=== PATIENT | male | born 2000 | race Hispanic/Latino ===

== ENCOUNTER 2024-07-01 05:57 | Emergency (ER) | payer SELFPAY ==
[~2024-07-01] VITALS: Ht 177.8 cm; Wt 113.4 kg
[2024-07-01 06:01] VITALS: TEMP 98.7
[2024-07-01 06:32] LABS: BASOPHILS # (AUTO) 0.1 (0.0-0.1); BASOPHILS % 0.5 % (0.0-1.0); EOSINOPHILS # (AUTO) 0.2 (0.0-0.4); EOSINOPHILS % 2.3 % (0.0-6.0); HEMATOCRIT 43.6 % (38.2-49.6); LYMPHOCYTES # (AUTO) 3.3 (1.0-3.2); MEAN CORPUSCULAR HEMOGLOBIN 31.3 pg (28-32); MEAN CORPUSCULAR HGB CONC 34.4 g/dL (31-35); MONOCYTES # (AUTO) 0.6 (0.2-0.8); MONOCYTES % 6.5 % (4.4-11.3); NEUTROPHILS # (AUTO) 5.2 (2.1-6.9); NEUTROPHILS % 55.2 % (38.7-80.0); PLATELET COUNT 386 x10e3/uL (140-360); RED BLOOD COUNT 4.79 x10e6/uL (4.3-5.7); RED CELL DISTRIBUTION WIDTH 12.8 % (11.7-14.4); WHITE BLOOD COUNT 9.49 x10e3/uL (4.8-10.8)
[2024-07-01] MEDS: ONDANSETRON HCL INJ 2MG/ML 2ML 2 MG/ML VIAL IV STA (06:37)
[2024-07-01] MEDS: FAMOTIDINE 20 MG/2 ML VIAL IV STA (06:37)
[2024-07-01] MEDS: Morphine 2mg Syringe 2 MG/ML SYR IV ONE (06:38)
[2024-07-01] MEDS: SODIUM CHLORIDE 0.9% 1000ML 1,000 ML IV ONE (06:38)
[2024-07-01 06:42] LABS: BILIRUBIN,URINE NEGATIVE (NEGATIVE); CLARITY,URINE SL CLOUDY (CLEAR); COLOR,URINE YELLOW (YELLOW); GLUCOSE, URINE NEGATIVE (NEGATIVE); KETONES,URINE NEGATIVE (NEGATIVE); LEUKOCYTE ESTERASE ,URINE NEGATIVE (NEGATIVE); NITRITE,URINE NEGATIVE (NEGATIVE); PH,URINE 5.5 (5 - 7); PROTEIN,URINE DIPSTICK NEGATIVE (NEGATIVE); URINE UROBILINOGEN 0.2 mg/dL (0.2 - 1)
[2024-07-01 06:50] LABS: ALBUMIN 4.6 g/dL (3.5-5.0); ALBUMIN/GLOBULIN RATIO 1.3 (0.8-2.0); ANION GAP 13.6 mmol/L (8-16); BILIRUBIN,TOTAL 0.4 mg/dL (0.2-1.2); CALCIUM 9.1 mg/dL (8.4-10.2); CREATININE, SERUM 0.79 mg/dL (0.72-1.25); POTASSIUM 3.6 mmol/L (3.5-5.1); TOTAL PROTEIN 8.1 g/dL (6.5-8.1)
[2024-07-01] MEDS ORDERED: IOPAMIDOL 370 MG/ML 100 ML INFUS..BTL INJ ONE (06:57)
[2024-07-01 07:08] LABS: BACTERIA,URINE RARE /HPF; RBC,URINE 0-5 /HPF (0-5)
[2024-07-01] MEDS ORDERED: ONDANSETRON ODT4 MG PO (08:45)
[2024-07-01 08:50] VITALS: PULSE 87; RESP 18; O2SAT 98
== END 2024-07-01 09:05 | disposition home or self-care (01) ==
LOC: ER 06:19
DX: R11.2 Nausea with vomiting, unspecified (principal); R10.12 Left upper quadrant pain; R19.7 Diarrhea, unspecified; R51.9 Headache, unspecified; R53.83 Other fatigue
CPT/HCPCS: 36415; 74177; 80053; 81001; 83690; 85025; 99284; J1308; J2270; J2405; J7030; Q9967

== ENCOUNTER 2024-10-10 21:55 | Emergency (ER) | payer SELFPAY ==
[~2024-10-10] VITALS: Ht 177.8 cm; Wt 113.4 kg
[~2024-10-10 21:55] MED LIST: ONDANSETRON ODT4 MG PO
[2024-10-10 22:03] VITALS: PULSE 80; RESP 16; TEMP 98.6; O2SAT 98
== END 2024-10-10 22:07 | disposition home or self-care (01) ==
LOC: ER 22:04
DX: R05.9 Cough, unspecified (principal); U07.1 COVID-19; R51.9 Headache, unspecified; R09.89 Other specified symptoms and signs involving the circulatory and respiratory systems
CPT/HCPCS: 99282